=== PATIENT | female | born 1935 | race Caucasian/White ===

== ENCOUNTER 2016-10-13 09:32 | Emergency (ER) | payer MEDICARE ==
[2016-10-13 09:53] VITALS: BP 130/53
--- NOTE | 2016-10-13 10:38 | UC ---
Lower Extremity/Ankle HPI - History of Current Complaint Chief Complaint: UCSkin Stated Complaint: LEFT FOOT/TOE PAIN Time Seen by Provider: 10/13/16 10:28 Hx Obtained From: Patient ?: No Onset/Duration: Gradual Onset - left distal second toe pain, redness and swelling, Lasting Days - 2, Worse Since - onset Severity Initially: Mild Severity Currently: Moderate Aggravating Factor(s): Standing, Ambulation Alleviating Factor(s): Rest Able to Bear Weight: Yes - Risk Factors Gout Risk Factors: Age Over 40 DVT Risk Factors: Negative Septic Arthritis Risk Factor: Extremes of Age - Allergies/Home Medications Allergies/Adverse Reactions: Allergies Allergy/AdvReac Type Severity Reaction Status Date / Time Adhesive Tape Allergy Intermediate Rash Verified 10/13/16 09:45 Home Medications: Home Medications [place] [[place] Hernandez] 550 mg PO QAM 10/13/16 [History Confirmed 10/13/16] Milk Thistle (Silybum [place] [Milk Thistle] 500 mg PO QAM 10/13/16 [History Confirmed 10/13/16] Nerve Control 1 tab PO QAM 10/13/16 [History Confirmed 10/13/16] [place]-3 Fatty Acids [[place] 3 1000 mg] 2 cap PO QAM 10/13/16 [History Confirmed 10/13/16] Urinary Maitenance 1 tab PO QAM 10/13/16 [History Confirmed 10/13/16] Vitamin B Complex CAP* [B Complex CAP*] 1 cap PO QAM 10/13/16 [History Confirmed 10/13/16] PMH/Surg Hx/FS Hx/Imm Hx Cardiovascular History Of: Reports: Cardiac Disorders - heart cath - Surgical History Surgical History: Yes Surgery Procedure, Year, and Place: Bilateral Cataract Extraction, 2015, ; Thyroid "A little thing off it"; Tubal Ligation, 1976, ; Appendectomy, ~1950, [place] - Family History Known Family History: Positive: Cardiac Disease Negative: Hypertension, Diabetes - Social History Occupation: Retired Lives: With Family Alcohol Use: Rare Substance Use Type: None Smoking Status (MU): Former Smoker Length of Time of Smoking/Using Tobacco: 28 Years Have You Smoked in the Last Year: No When Did the Patient Quit Smoking/Using Tobacco: 1983 Review of Systems Musculoskeletal: Arthralgia All Other Systems Reviewed And Are Negative: Yes Physical Exam Triage Information Reviewed: Yes Appearance: Well-Appearing, No Pain Distress, Well-Nourished Vital Signs: Initial Vital Signs Temp 98.3 F 10/13/16 09:42 Pulse 66 10/13/16 09:42 Resp 16 10/13/16 09:42 BP 130/53 10/13/16 09:42 Pulse Ox 98 10/13/16 09:42 Vital Signs Reviewed: Yes Eyes: Positive: Conjunctiva Clear Respiratory Exam: Normal Cardiovascular Exam: Normal Musculoskeletal: Positive: ROM Limited @ - left 2nd DIP Neurological Exam: Normal Psychological Exam: Normal Skin: Positive: Other - redness and swelling with warmth over the distal 2nd left toe, medial dorsal. Lower Extremity Course/Dx - Differential Dx/Diagnosis Differential Diagnosis/HQI/PQRI: Cellulitis, Fracture (Closed), Gout Provider Diagnoses: cellulitis left 2nd toe Discharge - Discharge Plan Condition: Stable Disposition: HOME Prescriptions: Cephalexin CAP* [Keflex 500 CAP*] 500 mg PO QID #28 cap Patient Education Materials: Cellulitis (ED), Cephalexin (By mouth) Additional Instructions: If not improving see your doctor for possible gout.
== END 2016-10-13 11:05 | disposition home or self-care (01) ==
LOC: UCCORT 09:32
DX: L03.032 Cellulitis of left toe (principal); Z98.42 Cataract extraction status, left eye; Z98.41 Cataract extraction status, right eye; Z87.891 Personal history of nicotine dependence
CPT/HCPCS: 99212; G0463

== ENCOUNTER 2016-10-28 09:39 | Emergency (ER) | payer MEDICARE ==
[2016-10-28 10:03] VITALS: BP 127/58
--- NOTE | 2016-10-28 10:14 | UC ---
Lower Extremity/Ankle HPI - HPI Summary HPI Summary: Pt states she was here 10/03/16 with a "bad toe." She has taken her medications and yesterday the second toe became more red and swollen. [ End ] - History of Current Complaint Chief Complaint: UCLowerExtremity Stated Complaint: LEFT FOOT TOE PAIN Time Seen by Provider: 10/28/16 10:13 Hx Obtained From: Patient ?: No Onset/Duration: Gradual Onset Severity Initially: Mild Severity Currently: Moderate Aggravating Factor(s): Standing, Ambulation Alleviating Factor(s): Rest, Elevation Able to Bear Weight: Yes - Risk Factors Septic Arthritis Risk Factor: Extremes of Age - Allergies/Home Medications Allergies/Adverse Reactions: Allergies Allergy/AdvReac Type Severity Reaction Status Date / Time Adhesive Tape Allergy Intermediate Rash Verified 10/28/16 10:03 PMH/Surg Hx/FS Hx/Imm Hx Previously Healthy: Yes Cardiovascular History Of: Reports: Cardiac Disorders - heart cath Respiratory History Of: Denies: COPD GI/ History Of: Denies: Gastroesophageal Reflux Neurological History Of: Denies: TIA Psychological History Of: Denies: Anxiety Cancer History Of: Denies: Lung Cancer - Surgical History Surgical History: Yes Surgery Procedure, Year, and Place: Bilateral Cataract Extraction, 2015, [place]; Thyroid "A little thing off it"; Tubal Ligation, 1976, [place]; Appendectomy, ~1950, [place] - Family History Known Family History: Positive: Cardiac Disease Negative: Hypertension, Diabetes - Social History Occupation: Retired Lives: With Family Alcohol Use: Rare Substance Use Type: None Smoking Status (MU): Former Smoker Length of Time of Smoking/Using Tobacco: 28 Years Have You Smoked in the Last Year: No When Did the Patient Quit Smoking/Using Tobacco: 1983 Review of Systems Constitutional: Negative Skin: Negative Eyes: Negative ENT: Negative Respiratory: Negative Cardiovascular: Negative Gastrointestinal: Negative Genitourinary: Negative Motor: Negative Neurovascular: Negative Musculoskeletal: Negative Neurological: Negative Psychological: Negative All Other Systems Reviewed And Are Negative: Yes Physical Exam Triage Information Reviewed: Yes Appearance: Well-Appearing, No Pain Distress, Well-Nourished Vital Signs: Initial Vital Signs Temp 98 F 10/28/16 09:56 Pulse 65 10/28/16 09:56 Resp 14 10/28/16 09:56 BP 127/58 10/28/16 09:56 Pulse Ox 98 10/28/16 09:56 Vital Signs Reviewed: Yes Eye Exam: Normal ENT Exam: Normal Dental Exam: Normal Neck exam: Normal Neck: Positive: 1 Respiratory Exam: Normal Cardiovascular Exam: Normal Musculoskeletal Exam: Normal Neurological Exam: Normal Psychological Exam: Normal Skin Exam: Normal Skin: Positive: Other - mild erythema distal MTP 2nd toe. yellow thickening all nails, cap refill hard to determine, sensation intact, no break in skin, tender to palpation , only dorsal aspect of toe Lower Extremity Course/Dx - Course Course Of Treatment: She states the previous keflex resolved infection, xray neg , no osteo, f/u with PCP and Podiatry, start probiotics - Differential Dx/Diagnosis Differential Diagnosis/HQI/PQRI: Gout, Infection, Osteomyelitis, Sprain, Strain Provider Diagnoses: Cellulitis left 2nd toe Discharge - Discharge Plan Condition: Good Disposition: HOME Prescriptions: Cephalexin CAP* [Keflex 500 CAP*] 500 mg PO TID #30 cap Patient Education Materials: Cellulitis (ED) Referrals: Deborah Moon MD [Primary Care Provider] - 3 Days
--- NOTE | 2016-10-28 10:51 | RAD ---
INDICATION: Left second toe recurrent infection. TECHNIQUE: 3 views of the left second toe were obtained. FINDINGS: There is soft tissue swelling present in the left second toe. There is a small area of decreased attenuation in the lateral aspect of the middle phalanx possibly representing a small erosion. No other focal osseous abnormalities are seen. IMPRESSION: SOFT TISSUE SWELLING AND POSSIBLE EROSION IN THE MIDDLE PHALANX SUGGESTING THE POSSIBILITY OF OSTEOMYELITIS. RECOMMEND AN MRI OF THE LEFT FOOT WITHOUT CONTRAST FOR FURTHER EVALUATION.
== END 2016-10-28 10:55 | disposition home or self-care (01) ==
LOC: UCCORT 09:39
DX: L03.032 Cellulitis of left toe (principal); I51.89 Other ill-defined heart diseases; Z98.42 Cataract extraction status, left eye; Z98.41 Cataract extraction status, right eye; Z87.891 Personal history of nicotine dependence
CPT/HCPCS: 99212; G0463

== ENCOUNTER 2019-09-21 09:58 | Emergency (ER) | payer MEDICARE, MEDICAID ==
[2019-09-21 10:33] VITALS: BP 123/58
--- NOTE | 2019-09-21 10:51 | UC ---
Upper Extremity HPI - HPI Summary HPI Summary: 83 year old female with hand pain. Handing something to with right hand last night. Ono her right middle finger"tendon move sideways without any popping or cracking." Pain with bending middle finger. Redness and swelling present. No other trauma. no history of gout or osteopenia/osteoporosis - History of Current Complaint Chief Complaint: UCUpperExtremity Stated Complaint: RT HAND SWELLING Time Seen by Provider: 09/21/19 10:48 Hx Obtained From: Patient Onset/Duration: Sudden Onset Pain Intensity: 0 - Allergies/Home Medications Allergies/Adverse Reactions: Allergies Allergy/AdvReac Type Severity Reaction Status Date / Time Adhesive Tape Allergy Intermediate Rash Verified 09/21/19 10:28 Home Medications: Home Medications Aspirin EC TAB* [Ecotrin EC Low Dose 81 MG*] 81 mg PO DAILY 09/21/19 [History Confirmed 09/21/19] PMH/Surg Hx/FS Hx/Imm Hx Previously Healthy: Yes - Surgical History Surgical History: Yes Surgery Procedure, Year, and Place: Bilateral Cataract Extraction, 2015, [place]; Thyroid "A little thing off it"; Tubal Ligation, 1976, [place]; Appendectomy, ~1950, [place] - Family History Known Family History: Positive: Cardiac Disease Negative: Hypertension, Diabetes - Social History Occupation: Retired Lives: With Family Alcohol Use: None Substance Use Type: None Smoking Status (MU): Former Smoker Length of Time of Smoking/Using Tobacco: 28 Years Have You Smoked in the Last Year: No When Did the Patient Quit Smoking/Using Tobacco: 1983 Review of Systems All Other Systems Reviewed And Are Negative: Yes Musculoskeletal: Positive: Arthralgia, Decreased ROM Is Patient Immunocompromised?: No Physical Exam Triage Information Reviewed: Yes Appearance: No Pain Distress Vital Signs: Initial Vital Signs Temp 98.0 F 09/21/19 10:29 Pulse 61 09/21/19 10:29 Resp 18 09/21/19 10:29 BP 123/58 09/21/19 10:29 Pulse Ox 97 09/21/19 10:29 Vital Signs Reviewed: Yes Eye Exam: Normal Neck: Positive: 1 Respiratory Exam: Normal Cardiovascular Exam: Normal Musculoskeletal: Positive: ROM Limited @ - mild reduced active ROM flexion in the 3rd right digit. tenderness to palpation of the base of the 3rd metacarpal with mild swelling and redness Neurological Exam: Normal Psychological Exam: Normal Skin Exam: Normal Diagnostics - Radiology No standard instances Radiology Interpretation Completed By: Radiologist Summary of Radiographic Findings: neg for fx Upper Extremity Course/Dx - Course Course Of Treatment: neg for fracture. advise Ice / analgesics and f/u with ortho . if sx worsen go to ED - Differential Dx/Diagnosis Differential Diagnosis/HQI/PQRI: Contusion, Fracture (Closed), Strain, Sprain Provider Diagnosis: Pain of right middle finger Discharge ED - Sign-Out/Discharge Documenting (check all that apply): Patient Departure All imaging exams completed and their final reports reviewed: Yes - Discharge Plan Condition: Good Disposition: HOME Patient Education Materials: Finger Sprain (ED), Arthritis (ED) Referrals: Sheryl Tatum MD [Primary Care Provider] - 2 Days Sarath Couch MD [Medical Doctor] - 3 Days - Billing Disposition and Condition Condition: GOOD Disposition: Home
== END 2019-09-21 11:49 | disposition home or self-care (01) ==
LOC: UCCORT 09:58
DX: M79.644 Pain in right finger(s) (principal); Z87.891 Personal history of nicotine dependence; Z91.09 Other allergy status, other than to drugs and biological substances; Z79.82 Long term (current) use of aspirin
CPT/HCPCS: 99212; G0463